=== PATIENT | female | born 2005 ===

== ENCOUNTER 2024-12-22 11:52 | Emergency (ER) | payer BC, SELFPAY ==
[2024-12-22 12:22] VITALS: BP 107/43; PULSE 82; RESP 20; TEMP 36.6; O2SAT 100; BMI 33.3
[2024-12-22 13:03] LABS: MANUAL DIFF FLAG NO
[2024-12-22 13:06] LABS: Appearance Urine Clear; Color Urine Yellow; Glucose Urine UA Negative (Negative); Leukocyte Esterase Urine Small (1+) (Negative); Nitrite Urine Negative (Negative); UMIC TRIGGER UACC YES; Urine Blood Negative (Negative); Urine Ketones Negative (Negative); Urine Protein Negative (Neg-Trace)
[2024-12-22 13:10] LABS: UPreg QC Valid YES; Urine Pregnancy NEGATIVE (NEGATIVE)
[2024-12-22 13:12] LABS: Basophils Percent Auto 0.3 % (0-2); Eosinophils Percent Auto 0.6 % (0-4); Hematocrit 34.8 % (37.0-47.0); Hemoglobin 11.9 g/dl (12.0-16.0); Imm Gran Abs Auto 0.01 X10*3/uL (0.00-0.03); Imm Gran Pct Auto 0.1 % (0.0-0.4); Lymphocytes Absolute Auto 1.9 X10*3/uL (1.2-4.9); Lymphocytes Percent Auto 28.3 % (20-40); Mean Corpuscular HGB Conc 34.2 g/dl (31.0-35.0); Mean Corpuscular Hemoglobin 30.5 pg (27.0-33.0); Mean Corpuscular Volume 89.2 fL (80.0-98.0); Mean Platelet Volume 9.3 fL (9.4-12.3); Monocytes Absolute Auto 0.4 X10*3/uL (0.1-1.2); Monocytes Percent Auto 6.4 % (2-11); Neutrophils Absolute Auto 4.4 x10*3/uL (2.0-8.3); Neutrophils Percent Auto 64.3 % (45-73); Platelet Count 290 X10*3/uL (160-400); Red Cell Distribution Width 12.5 % (11.0-16.0); White Blood Count 6.9 X10*3/uL (4.8-10.8)
[2024-12-22 13:30] LABS: Bacteria Urine None Seen (None Seen); Hyaline Casts Urine 0-2 /LPF (0-2); RBC Urine 0-2 /HPF (0-2); UACC Culture Trigger YES
[2024-12-22 13:42] LABS: Alanine Aminotransferase 29 U/L (0-31); Albumin Level 4.3 g/dL (3.5-5.0); Alkaline Phosphatase 66 U/L (39-117); Anion Gap 11 (12-20); Aspartate Amino Transferase 36 U/L (5-31); Bilirubin Direct < 0.2 mg/dL (0.0-0.5); Bilirubin Total 0.2 mg/dL (0.0-1.0); Blood Urea Nitrogen 12 mg/dL (9-16); Calcium 9.1 mg/dL (8.4-10.2); Carbon Dioxide 23 mmol/L (22-29); Chloride 109 mmol/L (96-108); Creatinine Clr Calc Pharmacy 116.9; Estimated Glomerular Filt Rate > 60; Glucose Random 91 mg/dL (60-115); Lipase 28 U/L (8-78); Potassium 4.1 mmol/L (3.3-5.1); Sodium 139 mmol/L (135-145); Total Protein 7.8 g/dL (6.5-8.0)
[2024-12-22 13:44] LABS: HCG Quantitative < 2 mIU/mL
[2024-12-22 21:55] VITALS: BP 123/71; PULSE 90; RESP 16; TEMP 36.7; O2SAT 97
--- NOTE | 2024-12-22 23:31 | ED.GENADULT ---
HPI - General Adult General Chief complaint: Vaginal Bleeding Stated complaint: Vag Bleed Clots Time Seen by Provider: 12/22/24 23:31 History of Present Illness ED Provider: Donovan LACY narrative: The patient is a 19-year-old female who says that she developed vaginal bleeding yesterday evening on Friday evening at around 9 PM. Apparently the bleeding was 1st noticed when she was having intercourse with her boyfriend. She says that she did not have pain during the intercourse but afterwards she was having pain and bleeding. The bleeding continued this morning and she came to the emergency room. There has been a long wait in the emergency room today so that by the time I am seeing her she has been in the emergency room for over 11 hours. She says that her bleeding has largely subsided and her pain has also resolved. There has been no fever, sweats, chills. Related Data Allergies Allergy/AdvReac Type Severity Reaction Status Date / Time penicillin G [PENICILLIN G] Allergy Intermediate RASH Verified 12/22/24 12:24 Review of Systems Review of Systems: Yes all other systems are reviewed and are negative [facility] Social History Social History Advance Directives: No Advance Directives Information Provided: No Do you have a plan to hurt others: No Plan Physical Exam ED Vital Signs: Vital Signs - 24 hr 12/22/24 21:55 12/22/24 23:50 Temperature 98.1 F 98.1 F Pulse Rate 90 90 Respiratory Rate 16 16 Blood Pressure 123/71 123/71 Pulse Oximetry 97 97 Oxygen Delivery Method Room Air Room Air BMI result Body Mass Index 33.3 Const Other: the patient is awake, alert, pleasant, cooperative. She does not appear in distress or ill. HENMT Other: Face is symmetrical. Mucous membranes moist. Eyes General: appearance normal, both eyes and all related structures Neck Neck: Yes normal visual inspection Resp Effort & Inspection: normal respiratory effort Auscultation: clear to auscultation bilaterally Cardio Rate: regular rate Rhythm: regular rhythm Heart sounds: S1 normal heart sound present and S2 normal heart sound present GI Other: The abdomen is soft and nontender. In particular there is no lower abdominal or pelvic tenderness. Skin Other: Skin is dry and unremarkable Neuro Other: the patient is awake and alert with normal mental status. Cranial nerves are grossly intact. She moves her extremities normally and appropriately. Extrem Other: No peripheral edema Medical Decision Making Medical Decision Making [facility] Narrative: the patient is a 19-year-old female who developed vaginal bleeding during intercourse with her regular partner last night. At the time that I saw the patient with about 24 hours after the onset of bleeding. She reports that she did not experience pain during intercourse but had pain afterwards. The pain has since subsided. She has had some bleeding but the bleeding has been subsiding as well. At the time that I saw her she had had a long wait in the emergency room and she was having only minimal ongoing bleeding her at and her discomfort had almost completely resolved. Her abdominal exam is entirely normal. testing shows that she is not . Other labs are unremarkable. I discussed possibly doing a pelvic exam but since the patient is feeling like things are getting somewhat better without treatment we have deferred a pelvic exam. I will get her the contact information for the gynecology office Lab Data 12/22/24 12:58 12/22/24 12:58 Labs: Lab Results 12/22/24 Range/Units 12:58 WBC 6.9 (4.8-10.8) X10*3/uL RBC 3.90 L (4.20-5.50) X10*6/uL Hgb 11.9 L (12.0-16.0) g/dl Hct 34.8 L (37.0-47.0) % MCV 89.2 (80.0-98.0) fL MCH 30.5 (27.0-33.0) pg MCHC 34.2 (31.0-35.0) g/dl RDW 12.5 (11.0-16.0) % Plt Count 290 (160-400) X10*3/uL MPV 9.3 L (9.4-12.3) fL Immature Gran % (Auto) 0.1 (0.0-0.4) % Neut % (Auto) 64.3 (45-73) % Lymph % (Auto) 28.3 (20-40) % Donley % (Auto) 6.4 (2-11) % Eos % (Auto) 0.6 (0-4) % Baso % (Auto) 0.3 (0-2) % Lymph # (Auto) 1.9 (1.2-4.9) X10*3/uL Donley # (Auto) 0.4 (0.1-1.2) X10*3/uL Eos # (Auto) 0.0 (0.0-0.4) X10*3/uL Baso # (Auto) 0.0 (0.0-0.2) X10*3/uL Abs Immat Gran (auto) 0.01 (0.00-0.03) X10*3/uL Absolute Neuts (auto) 4.4 (2.0-8.3) x10*3/uL Absolute Nucleated RBC 0.000 (0.0-0.012) X10*3/uL Nucleated RBC % (auto) 0.0 (0.0-0.2) /100WBC Sodium 139 (135-145) mmol/L Potassium 4.1 (3.3-5.1) mmol/L Chloride 109 H (96-108) mmol/L Carbon Dioxide 23 (22-29) mmol/L Anion Gap 11 L (12-20) BUN 12 (9-16) mg/dL Creatinine 0.70 (0.5-1.4) mg/dL Estim Creat Clear Calc 116.9 Estimated GFR > 60 Random Glucose 91 (60-115) mg/dL Calcium 9.1 (8.4-10.2) mg/dL Total Bilirubin 0.2 (0.0-1.0) mg/dL Direct Bilirubin < 0.2 (0.0-0.5) mg/dL AST 36 H (5-31) U/L ALT 29 (0-31) U/L Alkaline Phosphatase 66 (39-117) U/L Total Protein 7.8 (6.5-8.0) g/dL Albumin 4.3 (3.5-5.0) g/dL Lipase 28 (8-78) U/L Beta HCG, Quant < 2 mIU/mL Urine Color Yellow Urine Appearance Clear Urine pH 6.0 (5.0-9.0) Ur Specific [place] 1.020 (1.005-1.025) Urine Protein Negative (Neg-Trace) mg/dL Urine Glucose (UA) Negative (Negative) mg/dL Urine Ketones Negative (Negative) mg/dL Urine Blood Negative (Negative) Urine Nitrite Negative (Negative) Ur Leukocyte Esterase Small (1+) H (Negative) Urine RBC 0-2 (0-2) /HPF Urine WBC 6-10 H (0-5) /HPF Ur Squamous Epith Cells 3-5 (0-2) /HPF Urine Bacteria None Seen (None Seen) Hyaline Casts 0-2 (0-2) /LPF Urine Test NEGATIVE (NEGATIVE) Discharge Plan Discharge Clinical Impression: Vaginal bleeding Patient Disposition: Home, Self-Care Additional Instructions: Your blood testing today is reassuring. Your test is negative. My expectation is that the bleeding you has been experiencing will continue to diminish and stop altogether on its own. Please contact the Gynecology office tomorrow to see if you can get a prompt follow up appointment for a recheck at the Gynecology office. Return to the emergency room if significantly worse. Referrals: [facility] – [place] Women's Services [Provider Group] (Coital vaginal bleeding) Stand Alone Forms: Work/School Release Interventions: ED Discharge Assessment Last Done: 12/22/24 23:50 Discharge Date/Time: 12/22/24 23:50 Print Language: Divehi
[2024-12-22 23:50] VITALS: BP 123/71; PULSE 90; RESP 16; TEMP 36.7; O2SAT 97
== END 2024-12-22 23:50 | disposition home or self-care (01) ==
PROVIDERS: Emergency Provider Emergency Medicine
DX: N93.9 Abnormal uterine and vaginal bleeding, unspecified (principal); R10.2 Pelvic and perineal pain; Z79.899 Other long term (current) drug therapy
CPT/HCPCS: 36415; 80048; 80076; 81001; 81025; 83690; 84702; 85025; 87086; 99283